=== PATIENT | male | born 1970 | race Two or more races ===

== ENCOUNTER 2017-08-05 23:30 | Emergency (ER) | payer OTHER ==
[2017-08-05] MEDS ORDERED: ASPIRIN 81 MG CHEWABLE TAB ONE (23:45)
--- NOTE | 2017-08-05 23:49 | CPEKG ---
Heart Rate: 62 RR Interval: 968 P-R Interval: 232 QRSD Interval: 86 QT Interval: 388 QTC Interval: 394 P Voca: 45 QRS Voca: 19 T Wave Voca: 36 EKG Severity - ABNORMAL ECG - EKG Impression: SINUS RHYTHM EKG Impression: FIRST DEGREE AV BLOCK Electronically Signed By: Arthur Jones 06-Aug-2017 01:47:36
[2017-08-06 00:03] LABS: PLATELET COUNT 259 10^3/uL (150-400)
--- NOTE | 2017-08-06 00:15 | EDPHY ---
H & P Stated Complaint: c/o L chest pain radiating into LUE x 1 hr Time Seen by Provider: 08/05/17 23:44 HPI/ROS: Chief Complaint: Chest pain, left arm tingling, headache HPI: 47-year-old male has been having intermittent episodes of left-sided facial pain and tingling. It involves his left forehead and left side of his face. He has been seen by his physician at [facility] who diagnosed him with trigeminal neuralgia and with temporomandibular joint disease. They have scheduled an MRI. He has episodes occur about once a day. He also gets intermittent numbness in his left arm. This evening he was lying in bed when he I had the onset of some headache similar to his prior, tingling in his left arm and then developed some pain in his left upper chest. No shortness of breath. No diaphoresis. Patient states that he was breathing very fast and was getting cramping in his hands and his feet. States that his toes feel a bit cold as well. No recent illness. No cough. Symptoms have now resolved. He has not yet scheduled his MRI. No family history of coronary artery disease. No exertional chest pain. ROS: 10 point Review of Systems is negative except as noted in the HPI. PMH: Trigeminal neuralgia, temporomandibular joint disease Social History: Positive smoking, occasional alcohol Family History: non-contributory Physical Exam: Gen: Awake, Alert, No Distress HEENT: Nose: no rhinorrhea Eyes: PERRLA, EOMI Mouth: Moist mucosa Neck: Supple, no JVD Chest: nontender, lungs clear to auscultation Heart: S1, S2 normal, no murmur Abd: Soft, non-tender, no guarding Back: no CVA tenderness, no midline tenderness Ext: no edema, non-tender Skin: no rash Neuro: CN II-XII intact, Sensation grossly intact, Strength 5/5 in bilateral upper and lower extremities - Medical/Surgical History Hx Asthma: No Hx Chronic Respiratory Disease: No Hx Diabetes: No Hx Cardiac Disease: No Hx Renal Disease: No Hx Cirrhosis: No Hx Alcoholism: No Hx HIV/AIDS: No Hx Splenectomy or Spleen Trauma: No Other PMH: barretts espophagus, bilat knee surg - Social History Smoking Status: Current every day smoker Constitutional: Initial Vital Signs Heart Rate 63 08/05/17 23:33 Respiratory Rate 20 08/05/17 23:33 Blood Pressure 141/80 H 08/05/17 23:33 O2 Sat (%) 99 08/05/17 23:33 O2 Delivery Mode Room Air Allergies/Adverse Reactions: No Known Allergies Allergy (Verified 08/05/17 23:36) Home Medications: Medication Instructions Recorded Amoxicillin 500 mg PO BID 02/27/15 Esomeprazole Mag Trihydrate 40 mg PO DAILY #14 02/28/15 [Nexium] Medical Decision Making ED Course/Re-evaluation: 47-year-old male with an episode of left face and left arm numbness. Some left shoulder discomfort. No acute ischemic changes on his ECG. Troponin is negative. Symptoms are very atypical. Does not have a family history of coronary disease and this is not sound cardiac in nature. He is currently being worked up for trigeminal neuralgia and symptoms tonight started with headache and facial numbness which I think triggered his other symptoms. He is scheduled for an MRI as an outpatient. Blood work is normal. Plan will be for discharge for him to have his MRI as an outpatient, return for any concerns. - Data Points Laboratory Results: Laboratory Results 08/05/17 23:41 08/05/17 23:41 08/05/17 08/05/17 23:41 23:41 WBC 7.01 10^3/uL 10^3/uL (3.80-9.50) RBC 5.33 10^6/uL 10^6/uL (4.40-6.38) Hgb 15.8 g/dL g/dL (13.7-17.5) Hct 45.1 % % (40.0-51.0) MCV 84.6 fL fL (81.5-99.8) MCH 29.6 pg pg (27.9-34.1) MCHC 35.0 g/dL g/dL (32.4-36.7) RDW 13.2 % % (11.5-15.2) Plt Count 259 10^3/uL 10^3/uL (150-400) MPV 10.2 fL fL (8.7-11.7) Neut % (Auto) 41.8 % % (39.3-74.2) Lymph % (Auto) 46.1 % H % (15.0-45.0) [place] % (Auto) 7.3 % % (4.5-13.0) Eos % (Auto) 4.1 % % (0.6-7.6) Baso % (Auto) 0.6 % % (0.3-1.7) Nucleat RBC Rel Count 0.0 % % (0.0-0.2) Absolute Neuts (auto) 2.93 10^3/uL 10^3/uL (1.70-6.50) Absolute Lymphs (auto) 3.23 10^3/uL H 10^3/uL (1.00-3.00) Absolute Monos (auto) 0.51 10^3/uL 10^3/uL (0.30-0.80) Absolute Eos (auto) 0.29 10^3/uL 10^3/uL (0.03-0.40) Absolute Basos (auto) 0.04 10^3/uL 10^3/uL (0.02-0.10) Absolute Nucleated RBC 0.00 10^3/uL 10^3/uL (0-0.01) Immature Gran % 0.1 % % (0.0-1.1) Immature Gran # 0.01 10^3/uL 10^3/uL (0.00-0.10) Sodium 142 mEq/L mEq/L (135-145) Potassium 4.1 mEq/L mEq/L (3.5-5.2) Chloride 105 mEq/L mEq/L (97-110) Carbon Dioxide 24 mEq/l mEq/l (22-31) Anion Gap 13 mEq/L mEq/L (8-16) BUN 23 mg/dL mg/dL (7-23) Creatinine 1.1 mg/dL mg/dL (0.7-1.3) Estimated GFR > 60 Glucose 100 mg/dL mg/dL (70-100) Calcium 10.2 mg/dL mg/dL (8.5-10.4) Troponin I < 0.012 ng/mL ng/mL (0.000-0.034) Departure - Departure Disposition: Home, Routine, Self-Care Clinical Impression: Trigeminal neuralgia Condition: Good Instructions: Trigeminal Neuralgia (ED) Additional Instructions: Please arranged for your out patient MRI as ordered by your PCP. Follow up with your doctor in 2-3 days for further evaluation. Return to the emergency department for worsening pain, weakness, uncontrolled vomiting, chest pain, fainting, or any other concerns. Referrals: PEDRO CLANCY [Other] - As per Instructions
[2017-08-06 01:18] VITALS: BP 103/68; PULSE 58; RESP 16; TEMP 98.1; O2SAT 94
== END 2017-08-06 01:17 | disposition home or self-care (01) ==
DX: G50.0 Trigeminal neuralgia (principal); F17.200 Nicotine dependence, unspecified, uncomplicated